=== PATIENT | male | born 1995 | race Caucasian/White ===

== ENCOUNTER 2017-02-02 02:26 | Emergency (ER) | payer MEDICAID ==
[~2017-02-02] VITALS: Ht 167.6 cm; Wt 59.0 kg
[2017-02-02 02:37] VITALS: BP_SYST 153
[2017-02-02] MEDS: OXYCODONE/ACETAMINOPHEN *10*mg/325 mg TABLET PO ONE (02:44)
[2017-02-02 05:30] VITALS: BP_SYST 130
== END 2017-02-02 05:30 | disposition short-term general hospital (02) ==
LOC: SED 02:26
DX: T23.252A Burn of second degree of left palm, initial encounter (principal); X19.XXXA Contact with other heat and hot substances, initial encounter; Y93.89 Activity, other specified; Y92.89 Other specified places as the place of occurrence of the external cause; Y99.8 Other external cause status
CPT/HCPCS: 99285